=== PATIENT | male | born 1935 | race Caucasian/White ===

== ENCOUNTER 2017-01-06 18:16 | Emergency (ER) | payer MEDICARE ==
[~2017-01-06] VITALS: Ht 172.7 cm; Wt 104.3 kg
--- NOTE | 2017-01-06 18:49 | PHYS DOC ---
Past Medical History Past Medical History: DVT, Hypertension Past Surgical History: Other Additional Past Surgical Histo: hernia repair Alcohol Use: None Drug Use: None Adult General Chief Complaint Chief Complaint: TRAUMA ALERT HPI HPI Patient is a 81 year old male who presents with left index and long finger pain and laceration after cutting himself on a table saw accidentally. This occurred shortly prior to arrival. Bleeding was controlled with direct pressure. Pain is constant, achy, moderate. He denies numbness, tingling. States he cannot extend his index finger past the PIP. He denies other injury. Review of Systems Review of Systems Constitutional: Denies fever or chills [] Eyes: Denies change in visual acuity, redness, or eye pain [] HENT: Denies nasal congestion or sore throat [] Respiratory: Denies cough or shortness of breath [] Cardiovascular: No additional information not addressed in HPI [] GI: Denies abdominal pain, nausea, vomiting, bloody stools or diarrhea [] : Denies dysuria or hematuria [] Musculoskeletal: Denies back pain [] Integument: Denies rash or skin lesions [] Neurologic: Denies headache, focal weakness or sensory changes [] Endocrine: Denies polyuria or polydipsia [] Current Medications Current Medications Current Medications Medications (Trade) Dose Ordered Sig/Vamshi Start Time Stop Time Status Last Admin Dose Admin Cefazolin Sodium (Ancef 1gm Ivpb For Omni) 50 ml @ 100 mls/hr 1X ONCE 01/06/17 19:15 01/06/17 19:44 DC 01/06/17 19:22 100 MLS/HR Cefazolin Sodium 1 gm/Sodium Chloride 50 ml @ 100 mls/hr 1X STAT 01/06/17 19:01 01/06/17 19:30 UNV Diphtheria/ Tetanus/Acell Pertussis (Boostrix) 0.5 ml ONCE ONCE 01/06/17 19:00 01/06/17 19:01 DC 01/06/17 19:10 0.5 ML Fentanyl Citrate 50 mcg 50 mcg PRN Q15MIN PRN 01/06/17 19:00 01/06/17 19:09 50 MCG Lidocaine/Sodium Bicarbonate (Buffered Lidocaine 1%) 20 ml 1X ONCE 01/06/17 19:15 01/06/17 19:16 DC 01/06/17 19:22 20 ML Allergies Allergies Allergies Coded Allergies Type Severity Reaction Last Updated Verified No Known Drug Allergies 10/27/16 No Physical Exam Physical Exam Constitutional: Well developed, well nourished, no acute distress, non-toxic appearance. [] HENT: Normocephalic, atraumatic, bilateral external ears normal, oropharynx moist, no oral exudates, nose normal. [] Eyes: PERRLA, EOMI, conjunctiva normal, no discharge. [] Neck: Normal range of motion, no tenderness, supple, no stridor. [] Cardiovascular:Heart rate regular rhythm, no murmur [] Lungs & Thorax: Bilateral breath sounds clear to auscultation [] Abdomen: Bowel sounds normal, soft, no tenderness, no masses, no pulsatile masses. [] Skin: Warm, dry, no erythema, no rash. [] Back: No tenderness, no CVA tenderness. [] Extremities: LUE: index finger with 4cm linear transverse angled laceration to dorsum just distal to PIP, deep with oozing blood; long finger with 3.5cm linear laceration to dorsum just distal to PIP with no active bleeding; No obvious bone or tendon seen; Cannot extend index finger past PIP actively, and it is held in resting flexed position, but can flex at PIP; otherwise normal ROM at all joints of fingers and thumb; Can make fist/ok sign/thumb up/finger cross and spread; Can flex/ex wrist; Good radial pulse and brisk cap refill equal bilaterally; sensation intact to light touch m/u/r nerves Neurologic: Alert and oriented X 3, normal motor function, normal sensory function, no focal deficits noted. [] Psychologic: Affect normal, judgement normal, mood normal. [] Current Patient Data Vital Signs Vital Signs Date Time Temp Pulse Resp B/P Pulse Ox O2 Delivery O2 Flow Rate FiO2 01/06/17 21:50 60 190/86 98 Room Air 01/06/17 19:09 16 01/06/17 18:20 98.1 98.1 Lab Values Laboratory Tests Test 01/06/17 19:04 Prothrombin Time 22.1SEC (11.7-14.0) H Prothrombin Time INR 2.1 (0.8-1.1) H Radiology/Procedures Radiology/Procedures XR left hand as interpreted by me with with soft tissue defects seen on index and long fingers; has cortical disruption to proximal and radial aspect of middle phalanx of index finger concerning for fracture with adjacent debris Course & Med Decision Making Course & Med Decision Making Pertinent Labs and Imaging studies reviewed. (See chart for details) Discussed concern for open fracture with extensor tendon laceration with Dr. Johnson, orthopedics. He has reviewed XR and does not see obvious fracture indicating need for transfer at this time. He agrees with dose of Ancef, irrigation, laceration repair, splint and 2-day follow up with keflex at home. He tolerated wound repair well. Splint placed. Return precautions given. He and family understand and agree with plan. Dragon Disclaimer Dragon Disclaimer This electronic medical record was generated, in whole or in part, using a voice recognition dictation system. Laceration Repair Lac Repair Indication: Long finger and index finger lacerations Procedure: The patient was placed in the appropriate position and anesthesia around the lidocaine 1% digital block, 3 mL to each finger. The area was then cleaned with pressure normal saline 1L each. The laceration was closed with #3 4 -0 Ethilon simple interrupted sutures to each finger. The wound area was then dressed with insulin gauze and radial gutter splint. Total repaired wound length: 3.5cm to long finger and 4cm to index finger. The patient tolerated the procedure well. Complications: none. Departure Departure Impression: Primary Impression: Open fracture of phalanx of left index finger Additional Impression: Laceration of extensor structure of left index finger at hand level Disposition: 01 HOME, SELF-CARE Condition: STABLE Referrals: EDELMIRA JOHNSON MD Patient Instructions: Cast or Splint Care, [id number] Additional Instructions: Follow up with Orthopedics clinic in 2 days. Please call for appointment. Take keflex to help prevent infection. Take Tylenol as needed for moderate pain. Take tramadol as needed for severe pain. Do not drink, drive or operate heavy machinery after taking tramadol as it may make you sleepy. Return for any concerns. Scripts Tramadol Hcl 50 Mg Tablet1 Tab PO PRN Q6HRS PRN PAIN #10 TAB Prov:Jakob PATEL MD 01/06/17 Cephalexin (Keflex)250 Mg Capsule1 Cap PO TID #21 CAP Prov:Jakob PATEL MD 01/06/17 Problem Qualifiers Primary Impression: Open fracture of phalanx of left index finger Encounter type: initial encounter Phalanx: middle Fracture alignment: nondisplaced Qualified Code: S62.651B - Nondisplaced fracture of medial phalanx of left index finger, initial encounter for open fracture Jakob PATEL MD Jan 06, 2017 18:49
[2017-01-06] MEDS ORDERED: DIPHTH,PERTUSS(ACELL),TET TOX 0.5 ML DISP.SYRIN. VAX IM ONE (19:00)
[2017-01-06] MEDS ORDERED: FENTANYL PF 100 MCG/2 ML VIAL. IV PRN (19:00)
[2017-01-06] MEDS ORDERED: CEFAZOLIN SODIUM 1 GM in IV NORMAL SALINE 50ML 50 ML IV STA (19:01)
[2017-01-06] MEDS ORDERED: LIDOCAINE 1% / SOD BICARB 8.4% 20 ML VIAL. IJ ONE (19:15)
[2017-01-06] MEDS ORDERED: CEFAZOLIN 1GM IVPB FOR OMNI 50 ML IV ONE (19:15)
[2017-01-06 19:27] LABS: INR 2.1 (0.8-1.1); PROTHROMBIN TIME PATIENT 22.1 SEC (11.7-14.0)
[2017-01-06] MEDS ORDERED: HYDR-2666 PO (21:14)
[2017-01-06] MEDS ORDERED: CEPH-263 PO (21:26)
[2017-01-06] MEDS ORDERED: TRAM50TA PO (21:43)
[2017-01-06 21:50] VITALS: BP 190/86
--- NOTE | 2017-01-07 08:20 | RAD ---
Left hand, 01/06/2017: History: Hand injury. There is a partially radiopaque bandage overlying the distal aspect of the index finger. There are small densities projected over the soft tissues along the radial aspect of the PIP joint of the index finger. It is unclear whether these represent comminuted cortical fracture fragments or radiopaque debris within a wound, although the latter possibility is favored. No definite underlying fracture line is seen. There are moderate degenerative changes at scattered interphalangeal and MCP joints. There are severe degenerative change at the first CMC joint. 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 Arterial calcifications are present. IMPRESSION: 1. Moderate scattered degenerative changes. 2. No definite acute fracture is delineated.
[2017-01-08] MEDS ORDERED: WARF5TAB7 PO (17:46)
[2017-01-08] MEDS ORDERED: LISI30TA4 PO (17:46)
[2017-01-08] MEDS ORDERED: ASCO10002 PO (17:46)
[2017-01-08] MEDS ORDERED: FLUT9.9S NS (17:46)
[2017-01-09] MEDS ORDERED: HYDR-2678 PO (15:47)
[2017-01-09] MEDS ORDERED: ONDA4TAB7 PO (15:54)
== END 2017-01-06 22:05 | disposition home or self-care (01) ==
LOC: ER 18:16
DX: S62.651B Nondisplaced fracture of middle phalanx of left index finger, initial encounter for open fracture (principal); I10 Essential (primary) hypertension; W29.8XXA Contact with other powered hand tools and household machinery, initial encounter; Y93.89 Activity, other specified; Y92.89 Other specified places as the place of occurrence of the external cause; Y99.8 Other external cause status
CPT/HCPCS: 29125; 36415; 73130; 85610; 90471; 90715; 96365; 96375; 99285; J0690; J3010

== ENCOUNTER 2017-01-09 12:12 | Day surgery (SDC) | payer MEDICARE ==
[~2017-01-09] VITALS: Ht 170.2 cm; Wt 105.7 kg
[~2017-01-09 12:12] MED LIST: ASCO10002 PO; CEFAZOLIN 2GM PREMIX 50 ML IV PRN; CEPH-263 PO; FLUT9.9S NS; HYDR-2666 PO; LISI30TA4 PO; TRAM50TA PO; WARF5TAB7 PO
[2017-01-09 13:05] LABS: INR 1.3 (0.8-1.1); PROTHROMBIN TIME PATIENT 15.5 SEC (11.7-14.0)
[2017-01-09] MEDS ORDERED: LIDOCAINE 2% 100 MG/5 ML DISP.SYRIN. ONE (13:44)
[2017-01-09] MEDS ORDERED: DEXAMETHASONE SOD PHOS 20 MG/5 ML VIAL. ONE (13:44)
[2017-01-09] MEDS ORDERED: FENTANYL PF 100 MCG/2 ML VIAL. ONE (13:44)
[2017-01-09] MEDS ORDERED: PROPOFOL 20 ML IV ONE (13:44)
[2017-01-09] MEDS ORDERED: ONDANSETRON PF 4 MG/2 ML VIAL. ONE (13:45)
[2017-01-09] MEDS ORDERED: FAMOTIDINE 20 MG/2 ML VIAL ONE (14:16)
[2017-01-09] MEDS ORDERED: BUPIVACAINE-EPI 0.25%-1:200000 MPF 30 ML VIAL. ONE (14:41)
[2017-01-09] MEDS ORDERED: DESFLURANE 61 TO 120 MINUTES IH ONE (15:39)
[2017-01-09] MEDS ORDERED: HYDR-2678 PO (15:47)
[2017-01-09] MEDS ORDERED: ONDA4TAB7 PO (15:54)
[2017-01-09] MEDS ORDERED: IV RINGERS,LACTATED 1000ML 1,000 ML IV SCH (15:59)
[2017-01-09] MEDS ORDERED: HYDROMORPHONE 2 MG/ML VIAL. IV PRN (16:00)
[2017-01-09] MEDS ORDERED: PROCHLORPERAZINE 10 MG/2 ML VIAL. IV PRN (16:00)
[2017-01-09] MEDS ORDERED: MORPHINE SULFATE 2 MG/ML DISP.SYRIN. IV PRN (16:00)
[2017-01-09] MEDS ORDERED: FENTANYL PF 100 MCG/2 ML VIAL. IV PRN ×2 (16:00)
[2017-01-09] MEDS ORDERED: LIDOCAINE 1% 1 ML SYRINGE. ID PRN (16:00)
[2017-01-09] MEDS ORDERED: ONDANSETRON PF 4 MG/2 ML VIAL. IV PRN (16:00)
[2017-01-09] MEDS ORDERED: HYDROCODONE/APAP 5/325MG TABLET. PO ONE (16:30)
[2017-01-09 17:10] VITALS: BP 134/64
--- NOTE | 2017-01-15 17:59 | PDOC1 ---
History and Physical Date of Admission Date of Admission 01/09/2017 Identification/Chief Complaint Chief Complaint left hand tendon and bone injury from table saw Source Source: Chart review, Patient History of Present Illness History of Present Illness this 81-year-old man injured his left hand on 01/06/17 and was seen in the [facility] He is left handed, somewhat ambidextrous. He was making wooden wind chimes at home, using a table saw, ripping a board, when the board stuck to the blade and pulled his fingers into the saw. He cut his middle and index fingers on his table saw on Thursday01/06/17, and was seen in [facility]. The were stitched and splinted and X-rays were taken. He describes an 8 out of 10 pain level that is located mainly in his forearm but down into the hand somewhat, with numbness in the affected fingers. Any attempt at motion makes the pain much worse. He has been taking tramadol for pain, which has helped somewhat. He is taking Keflex three times a day. Past Medical History Cardiovascular: HTN Renal/: Other (chronic kidney disease) Past Surgical History Past Surgical History: Hernia Repair Family History Family History: Hypertension, Other (blood clots) Social History ALCOHOL: none Drugs: Other (smokeless tobacco) Current Medications Current Medications Current Medications Cefazolin Sodium/ Dextrose (Ancef 2gm Premix) 50 ml @ 100 mls/hr 1X PREOP PRN IV PRIOR TO PROCEDURE Last administered on 01/09/17t 14:30; Start 01/09/17 at 06 :00; Stop 01/09/17 at 17:46; Status DC Fentanyl Citrate 100 mcg 100 mcg STK-MED ONCE .ROUTE ; Start 01/09/17 at 13:44; Stop 01/09/17 at 13:45; Status DC Propofol (Diprivan) 20 ml @ As Directed STK-MED ONCE IV ; Start 01/09/17 at 13: 44; Stop 01/09/17 at 13:45; Status DC Lidocaine HCl 100 mg STK-MED ONCE .ROUTE ; Start 01/09/17 at 13:44; Stop at 13:45; Status DC Dexamethasone Sodium Phosphate (Decadron) 20 mg STK-MED ONCE .ROUTE ; Start at 13:44; Stop 01/09/17 at 13:45; Status DC Ondansetron HCl (Zofran) 4 mg STK-MED ONCE .ROUTE ; Start 01/09/17 at 13:45; Stop 01/09/17 at 13:46; Status DC Famotidine (Pepcid) 20 mg STK-MED ONCE .ROUTE ; Start 01/09/17 at 14:16; Stop at 14:17; Status DC Bupivacaine HCl/ Epinephrine Bitart (Sensorcaine-Epi 0.25%-1:[id number] Mpf) 30 ml STK-MED ONCE .ROUTE Last administered on 01/09/17t 14:41; Start 01/09/17 at 14: 41; Stop 01/09/17 at 14:42; Status DC Desflurane (Suprane) 60 ml STK-MED ONCE IH ; Start 01/09/17 at 15:39; Stop 01/09 at 15:40; Status DC Ondansetron HCl (Zofran) 4 mg PRN Q6HRS PRN IV Nausea; Start 01/09/17 at 16:00 ; Stop 01/09/17 at 17:46; Status DC Fentanyl Citrate (Fentanyl 2ml Vial) 25 mcg PRN Q5MIN PRN IV MILD PAIN; Start 01/09/17 at 16:00; Stop 01/09/17 at 17:46; Status DC Fentanyl Citrate (Fentanyl 2ml Vial) 50 mcg PRN Q5MIN PRN IV MODERATE PAIN; Start 01/09/17 at 16:00; Stop 01/09/17 at 17:46; Status DC Morphine Sulfate 1 mg 1 mg PRN Q10MIN PRN IV SEVERE PAIN; Start 01/09/17 at 16: 00; Stop 01/09/17 at 17:46; Status DC Lactated Ringer's (Iv Lactated Ringers) 1,000 ml @ 0 mls/hr Q0M IV ; Start at 15:59; Stop 01/09/17 at 17:46; Status DC Lidocaine HCl 2 ml 1X PRN PRN ID IV START; Start 01/09/17 at 16:00; Stop at 17:46; Status DC Hydromorphone HCl (Dilaudid) 0.5 mg PRN Q10MIN PRN IV SEV PAIN,Second choice; Start 01/09/17 at 16:00; Stop 01/09/17 at 17:46; Status DC Prochlorperazine Edisylate (Compazine) 5 mg PACU PRN PRN IV NAUSEA; Start 01/09 at 16:00; Stop 01/09/17 at 17:46; Status DC Acetaminophen/ Hydrocodone Bitart (Lortab 5/325) 1 tab 1X ONCE PO ; Start 01/09 at 16:30; Stop 01/09/17 at 16:31; Status DC Active Scripts Active Zofran (Ondansetron Hcl) 4 Mg Tablet 1 Tab PO Q6HRS Lortab 5-325 mg Tablet (Hydrocodone/Acetaminophen) 1 Each Tablet 1 Tab PO PRN Q6HRS PRN Tramadol Hcl 50 Mg Tablet 1 Tab PO PRN Q6HRS PRN Keflex (Cephalexin) 250 Mg Capsule 1 Cap PO TID Reported Flonase Allergy Relief (Fluticasone Propionate) 9.9 Ml [place].susp 2 Sprays NS DAILY Vitamin C (Ascorbic Acid) 1,000 Mg Tablet 1,000 Mg PO DAILY Lisinopril 30 Mg Tablet 30 Mg PO HS Warfarin Sodium 5 Mg Tablet 7.5 Mg PO DAILY Allergies Allergies: Coded Allergies: hydrochlorothiazide (Verified Allergy, Intermediate, Rash, 01/09/17) ROS General: No: Chills, Night Sweats Respiratory: No: Shortness of breath Cardiovascular: No Chest Pain Physical Exam General: Alert, Cooperative HEENT: Atraumatic Lungs: Normal air movement Heart: RRR Abdomen: Soft Extremities: Other (He has transverse lacerations across the left index and long finger dorsally. There is some drainage from these. These involve the proximal phalanx and dorsum of the proximal interphalangeal joint. 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 The long finger extension is probably intact although difficult to assess. Sensation is intact on both long and index fingers. The index finger does have loss of extension, probably a central slip disruption, without loss of the sagittal bands. 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 The thumb, ring, and small finger normal) Vitals Vitals Vital Signs Date Time Temp Pulse Resp B/P Pulse Ox O2 Delivery O2 Flow Rate FiO2 01/09/17 17:10 67 20 134/64 94 Room Air 01/09/17 16:03 10 01/09/17 12:56 99.3 99.3 Images Images Report reviewed and images independently reviewed from the emergency room. I don 't see a major fracture. I concur with the radiologist that these are most likely foreign body sawdust debris.. VTE Prophylaxis Ordered VTE Prophylaxis Devices: No VTE Pharmacological Prophylaxi: No Assessment/Plan Assessment/Plan He has definite extensor tendon disruption of the index finger, and possible extensor tendon disruption of the long finger. There are open wounds of both of these. I recommend surgical exploration, irrigation and debridement, and tendon repair. I will explore both digits, although there may be only tender repair on the index. I would consider a regional block, due to his comorbidities, or possibly general anesthesia. We will have him hold his Coumadin tonight, but we will be able to use a tourniquet, so bleeding should be minimal intraoperatively. He is not actively bleeding now so I don't think we will have a major bleeding problem postoperatively either. I talked to him about potential risks of re tear of the tendon repair, scarring, stiffness, infection , or other potential surgical or anesthetic complications. I expect he will return to functional use of the hand postoperatively EDELMIRA LI MD Jan 15, 2017 17:59
--- NOTE | 2017-01-15 18:17 | PDOC4 ---
Operative Note Operative Note Date of Procedure: 01/09/2017 Preoperative diagnosis: Left hand Extensor tendon laceration of index finger with open wound. Open wound long finger left hand. Postoperative diagnosis: Extensor tendon laceration of index and long finger with open wounds. Open joint injury left long finger and left index finger. Fracture of the proximal phalanx at the proximal interphalangeal joint, of the index finger. Procedure: Extensor tendon repair left index finger. Extensor tendon repair left long finger. Arthrotomy with irrigation proximal interphalangeal joint left index finger. Arthrotomy with irrigation proximal interphalangeal joint left long finger. Surgeon(s): Edelmira Johnson MD Anesthesia: General EBL: 10 mL Specimens Obtained: none Complications: none Drains: none Indications for Procedure: The patient is a 81 year old with table saw injury to the left index and long finger. The patient and I discussed the risks, benefits and alternatives of surgery. I knew that he would need a tendon repair on the index finger. I recommended exploration of the long finger with possible tendon repair. He may have other injuries. We discussed the potential risks of tendon rerupture, stiffness, infection, scarring, or other potential surgical or anesthetic complications. All of his questions about surgery were answered and he desired to proceed. Written consent was obtained. Procedure in Detail: The patient was identified in the preoperative holding area. The long and index finger were marked by me. The patient was taken to the operating room where general anesthetic was used. The patient was positioned supine on the operating table. A tourniquet was used on the upper arm. Preoperative antibiotics were given intravenously. A timeout procedure was performed. The left arm was prepared in sterile fashion with Betadine. Sterile drapes were applied. An Esmarch bandage was used to exsanguinate the limb and the tourniquet was inflated to 275 mmHg. The long finger was explored first. The transverse laceration suture repair sutures were removed. I made a longitudinal incision, incorporating the transverse laceration. I did not expect to find a tendon laceration, however there was a full-thickness extensor tendon disruption. This extended to the edges of the sagittal bands but did not involve them. It was a central slip disruption in zone three over the proximal interphalangeal joint. The joint was involved in the open injury. I did copious irrigation and arthrotomy of the joint. Saline irrigation was used. The extensor tendon was repaired with 4 -0 Prolene, using a modified Dean suture pattern, and additional figure-of- eight sutures. Secure repair was obtained, with minimal shortening. The skin was repaired with 4-0 Prolene interrupted sutures. The index finger was explored second. Transverse laceration sutures were removed. I made a longitudinal incision, incorporating the transverse laceration. The extensor tendon was disrupted. Again primarily the central slip, minimal involvement of the sagittal bands. There was extensive joint injury, and fracture of the proximal interphalangeal joint. Part of the joint was destroyed and small cartilage fragments and bone fragments were removed. Arthrotomy and irrigation and exploration of the proximal interphalangeal joint was performed. Extensive irrigation was performed with saline. The extensor tendon was repaired with 4-0 Prolene, using a modified Dean suture pattern, and additional [id number] sutures. A secure repair was again obtained, with minimal shortening. The skin was repaired with 4-0 Prolene interrupted sutures. Bipolar electrocautery was used carefully for hemostasis. Sterile dressings were applied. The tourniquet was released. A splint was applied with the wrist extended, and the interphalangeal joints in extension. Slight metacarpophalangeal joint flexion was allowed in the splint. The patient tolerated the procedure well. Needle and sponge counts were correct. There were no apparent complications. EDELMIRA JOHNSON MD Jan 15, 2017 18:17
--- NOTE | 2017-01-15 18:21 | PDOC ---
BRIEF OPERATIVE NOTE Date: Jan 09, 2017 Pre-Op Diagnosis Left hand Extensor tendon laceration of index finger with open wound. Open wound long finger left hand. Post-Op Diagnosis Extensor tendon laceration of index and long finger with open wounds. Open joint injury left long finger and left index finger. Fracture of the proximal phalanx at the proximal interphalangeal joint, of the index finger. Procedure Performed Extensor tendon repair left index finger. Extensor tendon repair left long finger. Arthrotomy with irrigation proximal interphalangeal joint left index finger. Arthrotomy with irrigation proximal interphalangeal joint left long finger. Surgeon sasha Anesthesia Type: General Blood Loss minimal Specimens Obtained none Findings as above Complications none Additional Remarks to PACU in stable condition. EDELMIRA LI MD Jan 15, 2017 18:21
== END 2017-01-09 17:46 | disposition home or self-care (01) ==
LOC: SURG 12:12
PROVIDERS: ATTEND Orthopaedic Surgery
DX: S66.321A Laceration of extensor muscle, fascia and tendon of left index finger at wrist and hand level, initial encounter (principal); S61.203A Unspecified open wound of left middle finger without damage to nail, initial encounter; S62.611A Displaced fracture of proximal phalanx of left index finger, initial encounter for closed fracture; I10 Essential (primary) hypertension; M19.90 Unspecified osteoarthritis, unspecified site; X58.XXXA Exposure to other specified factors, initial encounter; Y93.9 Activity, unspecified; Y92.9 Unspecified place or not applicable; Y99.9 Unspecified external cause status; Z72.89 Other problems related to lifestyle; Z79.01 Long term (current) use of anticoagulants
CPT/HCPCS: 26080; 26410; 36415; 85610; 85730; A4215; J0690; J1100; J2405; J2704; J3010; S0028

== ENCOUNTER 2019-03-03 11:24 | Emergency (ER) | payer BC ==
[~2019-03-03] VITALS: Ht 170.2 cm; Wt 108.9 kg
[~2019-03-03 11:24] MED LIST changes: -CEFAZOLIN 2GM PREMIX 50 ML IV PRN; -HYDR-2666 PO; +HYDR-2678 PO; +HYDR-2761 PO; +ONDA4TAB7 PO; +WARF-31 PO; -WARF5TAB7 PO
--- NOTE | 2019-03-03 13:57 | RAD ---
3 views left hand dated 03/03/2019. No comparison available. Clinical data indication: Middle finger infection with redness and swelling. FINDINGS: 3 views of left long finger shows diffuse soft tissue swelling. Severe degenerative change at the DIP joint with moderate degenerative change of the PIP joint. No definite bone destruction or periostitis. Degenerative change and joint space narrowing at the MCP joint. There are moderate degenerative change of the first carpometacarpal joint and scaphoid trapezial joint with moderate degenerative change of the interphalangeal joints throughout. Diffuse vascular calcinosis. Generalized soft tissue swelling. IMPRESSION: 1. Soft tissue swelling at the long finger with no plain film evidence of osteomyelitis. If there is persistent clinical concern, MRI could better evaluate. 2. Degenerative changes as described above. Electronically signed by: Aristeo Early MD (03/03/2019 1:54 PM) [id number]
[2019-03-03] MEDS ORDERED: LIDOCAINE WITH 8.4% SOD BICARB 3 ML DISP.SYRIN. INJ ONE (14:30)
[2019-03-03] MEDS ORDERED: SULF1TAB24 PO (15:44)
[2019-03-03] MEDS ORDERED: CEPH500T PO (15:44)
--- NOTE | 2019-03-03 15:45 | PHYS DOC ---
Past Medical History Past Medical History: DVT, Hypertension (SIMONE MAGAÑA APRN) Past Surgical History: Other Additional Past Surgical Histo: hernia repair,L FINGER (SIMONE MAGAÑA APRN) Alcohol Use: None Drug Use: None (SIMONE MAGAÑA APRN) Adult General Chief Complaint Chief Complaint: ABSCESS HPI HPI Patient is a 83 year old male who presents with abscess of the left middle finger that began yesterday. Patient denies any fever or drainage. He states he tried poking the area with no success. He is right-handed. (SIMONE MAGAÑA APRN) Review of Systems Review of Systems Constitutional: Denies fever or chills [] Musculoskeletal: Left finger infection Integument: Denies rash or skin lesions [] Neurologic: Denies headache, focal weakness or sensory changes [] All other systems were reviewed and found to be within normal limits, except as documented in this note. (SIMONE MAGAÑA APRN) Current Medications Current Medications Current Medications Medications (Trade) Dose Ordered Sig/Vamshi Start Time Stop Time Status Last Admin Dose Admin Lidocaine/Sodium Bicarbonate (Buffered Lidocaine 1%) 3 ml 1X ONCE 03/03/19 14:30 03/03/19 14:31 DC 03/03/19 14:38 3 ML (ARISTEO DICKINSON DO) Allergies Allergies Allergies Coded Allergies Type Severity Reaction Last Updated Verified hydrochlorothiazide Allergy Intermediate Rash 01/09/17 Yes (RAISTEO DICKINSON DO) Physical Exam Physical Exam Constitutional: Well developed, well nourished, no acute distress, non-toxic appearance. [] Skin: Warm, dry, no erythema, no rash. [] Back: No tenderness, no CVA tenderness. [] Extremities: Left middle finger at the PIP joint is moderately swollen, there is diffuse cellulitis around this area, the area is fluctuant especially on the medial aspect, full range of motion to the fingers including flexion and extension adequate radial, medial sensation to the finger. +2 left radial pulse. Cap refill less than 2 seconds to the finger. Neurologic: Alert and oriented X 3, normal motor function, normal sensory function, no focal deficits noted. [] Psychologic: Affect normal, judgement normal, mood normal. [] (SIMONE MAGAÑA APRN) Current Patient Data Vital Signs Vital Signs Date Time Temp Pulse Resp B/P (MAP) Pulse Ox O2 Delivery O2 Flow Rate FiO2 5/16/19 16:00 67 16 202/80 (120) 98 Room Air 03/03/19 11:50 97.7 97.7 (ARISTEO DICKINSON DO) EKG EKG [] (SIMONE MAGAÑA APRN) Radiology/Procedures Radiology/Procedures []PROCEDURE: FINGER(S) LEFT 3 views left hand dated 03/03/2019. No comparison available. Clinical data indication: Middle finger infection with redness and swelling. FINDINGS: 3 views of left long finger shows diffuse soft tissue swelling. Severe degenerative change at the DIP joint with moderate degenerative change of the PIP joint. No definite bone destruction or periostitis. Degenerative change and joint space narrowing at the MCP joint. There are moderate degenerative change of the first carpometacarpal joint and scaphoid trapezial joint with moderate degenerative change of the interphalangeal joints throughout. Diffuse vascular calcinosis. Generalized soft tissue swelling. IMPRESSION: 1. Soft tissue swelling at the long finger with no plain film evidence of osteomyelitis. If there is persistent clinical concern, MRI could better evaluate. 2. Degenerative changes as described above. Electronically signed by: Aristeo Early MD (03/03/2019 1:54 PM) [id number] DICTATED and SIGNED BY: ARISTEO EARLY MD DATE: 03/03/19 7332 Indication: abscess on the left middle finger Procedure: The patient was positioned appropriately. Local anesthesia was 1% buffered lidocaine. An incision was then made over the apex of the lesion with an 11 blade and mild amount of yellow purulent bloody material was expressed. The drainage cavity was irrigated and covered with sterile gauze. The patients tetanus status updated as needed. The patient tolerated the procedure well. Complications: none. (SIMONE MAGAÑA APRN) Course & Med Decision Making Course & Med Decision Making Pertinent Labs and Imaging studies reviewed. (See chart for details) This is a 83-year-old male patient who presents to the ED today with abscess and cellulitis of the left middle finger. Left middle finger x-rays interpreted by radiologist are negative for any acute findings. Abscess was drained by me as noted in procedures. Follow-up with primary care doctor. Discharged with Bactrim and cephalexin. Wound care instructions and return precautions provided. Tetanus up-to-date. (SIMONE MAGAÑA APRN) Dragon Disclaimer Dragon Disclaimer This electronic medical record was generated, in whole or in part, using a voice recognition dictation system. (SIMONE MAGAÑA APRN) Departure Departure Impression: Primary Impression: Abscess of left index finger Additional Impression: Cellulitis of left finger Disposition: HOME, SELF-CARE Condition: STABLE Referrals: UNKNOWN PCP NAME (PCP) Please follow-up with your own doctor in the next 3-7 days Patient Instructions: Abscess, Cellulitis, [id number]-Efty Additional Instructions: You were seen for an abscess with cellulitis of the left middle finger. We put you on antibiotics. Make sure you complete them. Follow-up with your doctor in 3-7 days. Soak the finger in warm water with Epsom salts twice a day. Scripts Sulfamethoxazole/Trimethoprim (BACTRIM DS TABLET) 1 Each Tablet 1 TAB PO BID, #20 TAB Prov: SIMONE MAGAÑA APRN 03/03/19 Cephalexin (CEPHALEXIN) 500 Mg Tablet 1 TAB PO QID, #40 TAB Prov: SIMONE MAGAÑA APRN 03/03/19 Attending Signature Attending Signature I have reviewed the PA/SOLUTIONS ARCHITECT's note and plan of care. I was available for consultation as needed during the patient's visit in the emergency department. I agree with the clinical impression, plan, and disposition. (ARISTEO DICKINSON DO) Problem Qualifiers SIMONE MAGAÑA APRN March 03, 2019 15:45 ARISTEO DICKINSON DO March 04, 2019 12:53
[2019-03-03 16:00] VITALS: BP 202/80
== END 2019-03-03 16:00 | disposition home or self-care (01) ==
LOC: ER 11:24
DX: L02.512 Cutaneous abscess of left hand (principal); L03.012 Cellulitis of left finger; I10 Essential (primary) hypertension; Z86.718 Personal history of other venous thrombosis and embolism; Z88.8 Allergy status to other drugs, medicaments and biological substances
CPT/HCPCS: 26010; 73140; 99284-25